=== PATIENT | male | born 1985 | race African-American/Black ===

== ENCOUNTER 2023-02-01 16:28 | Emergency (ER) | payer OTHER ==
[2023-02-01] MEDS ORDERED: Gabapentin 600 MG Tab PO STA (17:06)
[2023-02-01] MEDS ORDERED: Ketorolac 30 MG/ML SDV IM STA (17:47)
== END 2023-02-01 18:24 | disposition home or self-care (01) ==
LOC: FB.ED 16:28
DX: G62.9 Polyneuropathy, unspecified (principal); Z72.0 Tobacco use
CPT/HCPCS: 96372; 99283; A9270-GY; J1885